=== PATIENT | female | born 1995 | race Hispanic/Latino ===

== ENCOUNTER 2017-07-24 17:40 | Inpatient (IN) | payer MEDICAID ==
[2017-07-24 18:24] LABS: Bilirubin Negative (Negative); Blood, Urine Large (Negative); Clarity CLEAR (Clear); Glucose, Urine (Dipstick) Negative (Negative); Leukocyte Trace (Negative); Nitrite Negative (Negative); Protein, Urine (Dipstick) Negative (Neg-Trace); Specific Gravity, Urine 1.025 (1.002-1.036)
[2017-07-24 18:25] LABS: Pregnancy Test - Urine (BHCG) Negative (Negative); Pregu Control Background? CLEAR/WHITE (CLR/WHITE); Pregu Control Bar Appear? YES (CONTROL BAR); Specific Gravity 1.025 (1.002-1.036)
[2017-07-24 18:26] LABS: Bacteria/HPF Rare-Few HPF (None Seen); Hyaline Casts/LPF 0-3 HYALINE CAST LPF (0-3 Hyaline); Pathc Cast-AUWi Flag 0.13 (0-2.49); Squamous Epithelial 0-3 HPF (0-3)
[2017-07-24] MEDS ORDERED: Morphine 4 MG/ML Carpuject ONE (18:34)
[2017-07-24] MEDS ORDERED: Ondansetron HCl/PF 4 MG/2 ML Vial ONE (18:34)
[2017-07-24 18:36] LABS: Yeast-AUWi Flag 46.8 (0-25.0)
[2017-07-24 18:43] LABS: #Basophils 0.1 thou/uL (0.0-0.2); #Eosinphils 0.3 thou/uL (0.0-0.7); #Lymphocytes 1.8 thou/uL (1.20-3.40); #Monocytes 0.5 thou/uL (0.11-0.59); #Neutrophils 3.4 thou/uL (1.40-6.50); %Basophils 1.3 % (0.0-1.0); %Eosinophils 4.3 % (0.0-10.0); %Lymphocytes 29.6 % (21.0-51.0); %Monocytes 8.4 % (0.0-10.0); %Neutrophils 56.4 % (42.0-75.0); Hemoglobin 13.7 g/dL (12.0-16.0); Mean Corpuscular HGB CONC 32.8 g/dL (32.0-36.0); Mean Corpuscular Hemoglobin 31.5 pg (27.0-31.0); Mean Corpuscular Volume 95.9 fl (81.0-99.0); Mean Platelet Volume 6.8 fL (7.4-10.4); Platelet Count 351 thou/uL (130-400); RBC Distribution Width 11.4 % (11.5-14.5); Red Blood Cell (RBC) Count 4.37 mill/uL (4.20-5.40); White Blood Cell (WBC) Count 6.1 thou/uL (4.8-10.8)
[2017-07-24 18:50] LABS: BHCG - Serum Negative (NEGATIVE); Pregs Control Background? CLEAR/WHITE (CLR/WHITE); Pregs Control Bar Appear? YES (CONTROL BAR)
[2017-07-24 18:54] LABS: RBC/HPF 0-3 HPF (0-3); Yeast-All Forms None Seen HPF (None Seen)
[2017-07-24 19:06] LABS: ALT (SGPT) 1214 U/L (8-55); AST (SGOT) 696 U/L (5-34); Albumin 4.3 g/dL (3.5-5.0); Alkaline Phosphatase 231 U/L (40-150); Anion Gap 12 mmol/L (10-20); BUN (Urea Nitrogen) 12 mg/dL (7.0-18.7); Bilirubin, Total 1.3 mg/dL (0.2-1.2); Calc. Creatinine Clearance 0 mL/min (70-130); Calcium 10.5 mg/dL (7.8-10.44); Carbon Dioxide 27 mmol/L (22-29); Chloride 104 mmol/L (98-107); Estimated GFR-MDRD Greater than 90; Globulin 3.3 g/dL (2.4-3.5); Glucose 92 mg/dL (70-105); Lipase 33 U/L (8-78); Potassium 3.9 mmol/L (3.5-5.1); Protein, Total 7.6 g/dL (6.0-8.3); Sodium 139 mmol/L (136-145)
--- NOTE | 2017-07-24 19:09 | ULT ---
GALLBLADDER ULTRASOUND 07/24/17 CLINICAL HISTORY: Abdominal pain for four days. FINDINGS: There are foci of increased echogenicity within the gallbladder lumen. Gallbladder wall measures betw een 2 and 3 mm in size. No focal hepatic lesion. Common duct is dilated at 7 mm. There is no ascites. IMPRESSION: Evidence of cholelithiasis and biliary ductal dilatation. Recommend correlation with biliary laborato ry values to exclude an obstructive process. There is borderline size of the gallbladder wall. Recommend clinical correlation to exclude developin g cholecystitis, and if necessary surgical consultation may prove useful. POS: OFF
[2017-07-24] MEDS ORDERED: Meropenem 1 GM in Sterile Water 20 ML SLOW IVP SCH (20:00)
[2017-07-24] MEDS: D5 1/2 NS w/20 mEq KCL 1,000 ML IV SCH (20:48)
[2017-07-25 01:20] VITALS: BMI 19.8
[2017-07-25] MEDS ORDERED: Meropenem 1 GM in Sterile Water 20 ML SLOW IVP SCH (04:00)
[2017-07-25] MEDS: D5 1/2 NS w/20 mEq KCL 1,000 ML IV SCH (04:44)
[2017-07-25 08:01] VITALS: BP 89/46; TEMP 98
[2017-07-25] MEDS ORDERED: Ondansetron ORAL SOLN. 4 MG/5 ML UDCUP PO PRN ×2 (08:54)
[2017-07-25] MEDS ORDERED: Ondansetron ODT 4 MG TAB PO PRN (08:54)
[2017-07-25] MEDS ORDERED: Ketorolac Tromethamine 30 MG/ML VIAL IVP PRN (08:54)
[2017-07-25] MEDS ORDERED: Ondansetron HCl/PF 4 MG/2 ML Vial IVP PRN ×2 (08:54→13:45)
[2017-07-25] MEDS ORDERED: Ondansetron ODT 8 MG TAB PO PRN (08:54)
[2017-07-25] MEDS ORDERED: Acetaminophen 1,000 MG in Premix Bag 1 BAG IVPB PRN (08:54)
[2017-07-25] MEDS ORDERED: Ondansetron ODT 8 MG TAB SL PRN (08:54)
[2017-07-25] MEDS ORDERED: Sodium Chloride 0.9% 1,000 ML IV SCH (09:00)
--- NOTE | 2017-07-25 09:53 | HP ---
DATE OF EVALUATION: 07/25/2017 HISTORY OF PRESENT ILLNESS: Imelda Saenz is a 21-year-old female patient who presents with ep igastric pain with back radiation, nausea, vomiting, acute onset four days, seen in the emergency jose francisco m. Liver function test elevated, bile duct of 7 mm. Gallbladder, full of stones. ALLERGIES: None. TOBACCO: None. ALCOHOL: Rarely. MEDICATIONS: None. PAST SURGICAL HISTORY: Noncontributory. PAST MEDICAL HISTORY: Noncontributory. REVIEW OF SYSTEMS: Noncontributory. PHYSICAL EXAMINATION: VITAL SIGNS: Height 5 foot 2, weight 108 pounds, 19 BMI, 98 degrees, 79, 89/46. HEENT: Unremarkable. LUNGS: Clear to auscultation. CARDIAC: Regular rate and rhythm without murmur or gallop. ABDOMEN: Soft, mild tenderness in epigastric, right upper quadrant with guarding. EXTREMITIES: Unremarkable. ASSESSMENT AND PLAN: Acute cholecystitis. Recommend laparoscopic video cholecystectomy. Risk of in fection, bleeding, visceral and biliary injury explained. We will obtain cholangiogram. She may nee d an ERCP. This was explained to her. Today, Gastroenterology on-call is Dr. Martinez, we will homer l him in case he is needed. Note, she is a 1, para 1, [id number] son.
[2017-07-25] MEDS ORDERED: Scopolamine 1.5 mg/72 hour Patch TD SCH (10:00)
[2017-07-25] MEDS ORDERED: Propofol 200 MG/20 ML VIAL ONE (11:07)
[2017-07-25] MEDS ORDERED: Dexamethasone 20 MG/5 ML VIAL ONE ×2 (11:07)
[2017-07-25] MEDS ORDERED: Lidocaine 1% PF 5 ML VIAL ONE (11:07)
[2017-07-25] MEDS ORDERED: PHENYLEPHRINE-NS 100 MCG/ML 10 ML SYRINGE ONE (11:07)
[2017-07-25] MEDS ORDERED: Ondansetron HCl/PF 4 MG/2 ML Vial ONE (11:07)
[2017-07-25] MEDS ORDERED: Ketorolac Tromethamine 30 MG/ML VIAL ONE (11:43)
[2017-07-25] MEDS ORDERED: Midazolam HCl 2 mg/2 ml Vial ONE ×2 (12:06→12:13)
[2017-07-25] MEDS ORDERED: Iothalamate Meglumine 60% 50 ML VIAL FS ONE (12:12)
[2017-07-25] MEDS ORDERED: Bupivacaine/Epinephrine 0.25% 30 ML VIAL ONE (12:12)
[2017-07-25] MEDS ORDERED: Fentanyl 100 MCG/2 ML VIAL ONE ×2 (12:13→14:03)
[2017-07-25] MEDS ORDERED: Promethazine HCl 25 MG/ML VIAL ONE (12:14)
[2017-07-25] MEDS ORDERED: SUGAMMADEX SODIUM 200 MG/2 ML VIAL ONE (13:29)
[2017-07-25] MEDS ORDERED: Morphine Sulfate 2 MG/ML SYRINGE SLOW IVP PRN (13:45)
[2017-07-25] MEDS ORDERED: Promethazine HCl 25 MG/ML VIAL SLOW IVP PRN (13:45)
[2017-07-25] MEDS ORDERED: Meperidine HCl/PF 25 MG/ML VIAL SLOW IVP PRN (13:45)
--- NOTE | 2017-07-25 13:57 | RAD ---
OPERATIVE CHOLANGIOGRAM: Indication: Intraoperative imaging to assess the common bile duct during cholecystomy procedure. FINDINGS: Single image is presented. The common duct is opacified and appears unremarkable. No filling defect o r stricture identified. POS: [facility]
[2017-07-25] MEDS ORDERED: traMADol HCl 50 MG TAB PO PRN ×2 (14:14)
--- NOTE | 2017-07-25 15:06 | OP ---
DATE OF PROCEDURE: 07/25/2017 PREOPERATIVE DIAGNOSES: Acute cholecystitis, cholelithiasis, elevated liver function tests, common b ile duct 7 mm. POSTOPERATIVE DIAGNOSES: Acute cholecystitis, cholelithiasis, elevated liver function tests, common bile duct 7 mm. PROCEDURES: Laparoscopic video cholecystectomy. Normal intraoperative cholangiogram. Fluoroscopy u sed less than 5 minutes. SURGEON: Narendra Lam M.D. ANESTHESIA: General. ESTIMATED BLOOD LOSS: 22 mL. PROCEDURE IN DETAIL: The patient was taken to the operating room where under general anesthesia, abd omen was prepared with ChloraPrep, draped in routine fashion, 0.25% Marcaine with epinephrine infiltr ated into skin and subcutaneous tissue about each port site. Infraumbilical incision made. Pneumope ritoneum to 15 mmHg was obtained with the Veress needle, replacing it with a 5 port, and laparoscope inserted. Right subxiphoid incision made and 11 port placed. Right subcostal incision made mid clav icular anterior axillary lines and 5 ports placed. Liver appeared to be normal. Fundus of gallbladd er grasped and reflected cephalad. Infundibulum grasped and reflected laterally. Cystic artery and duct dissected free. Critical view obtained. Cystic artery double clipped proximally. Cystic duct singly clipped on the gallbladder side. Opening made in the cystic duct, cholangiocath inserted, and cholangiogram was obtained using fluoroscopy with contrast filling the common hepatic, common bile, left and right hepatic ducts without filling defects with free flow of contrast into the duodenum. C holangiocatheter removed. Cystic duct stump doubly clipped. Cystic artery and duct divided. The ga llbladder dissected free from the liver bed obtaining good hemostasis prior to division of final bernard toneal attachments. Gallbladder and contents placed in Endobag and removed. Good hemostasis ensured with cautery. Irrigant and pneumoperitoneum evacuated. All instruments were removed and all skin i ncisions approximated with interrupted subdermal 4-0 Monocryl and DermaGlue applied.
--- NOTE | 2017-07-26 01:21 | DIS ---
DISCHARGE DIAGNOSES: Acute cholecystitis, cholelithiasis, elevated liver function tests with bilirub in 1.5, bile ducts 7 mm. PROCEDURES: Ultrasound of the gallbladder, laparoscopic video cholecystectomy, normal cholangiogram. SURGEON: Dr. Lam. HISTORY: A 21-year-old 1, para 1, 1-year-old son presents with 4-day history of epigastric p ain, back radiation, nausea and vomiting. Emergency room evaluation revealed elevated liver function test, bilirubin 1.5, bile duct 7 mm on ultrasound. The patient was taken for laparoscopic cholecyst ectomy and cholangiogram, which were normal. Postoperatively discharged home. Follow up in my offic e in 2-3 weeks. Diet and activity as tolerated. No restrictions. [id number] Tylenol, Motrin and Advil for pain, Ultram 50 #20, one refill given in case needed.
[2017-07-26] MEDS ORDERED: Acetaminophen 500 MG TAB PO PRN (14:14)
[2017-07-30] MEDS ORDERED: Ibuprofen 600 MG TAB PO PRN (14:14)
== END 2017-07-25 20:16 | disposition home or self-care (01) | DRG 419 ==
LOC: ERS 17:40 → SJJU 20:23
PROVIDERS: ADMIT Specialist; ATTEND Specialist
PROC: 0FT44ZZ Resection of Gallbladder, Percutaneous Endoscopic Approach (ICD-10-PCS; principal; 2017-07-25)
PROC: BF130ZZ Fluoroscopy of Gallbladder and Bile Ducts using High Osmolar Contrast (ICD-10-PCS; 2017-07-25)
DX: K80.00 Calculus of gallbladder with acute cholecystitis without obstruction (principal)
CPT/HCPCS: 36415; 47532; 76705; 80053; 81003; 81015; 81025; 83690; 84703; 85025; 88304; 96361; 96374; A4216; J0131; J1610; J1885; J1956; J2185; J2250; J2270; J2405; J2550; J3010; Q9961

== ENCOUNTER 2018-08-29 07:20 | Outpatient (CLI) | payer OTHER ==
--- NOTE | 2018-08-29 09:02 | ULT ---
OB ULTRASOUND DOPPLER COLOR FLOW WITH SPECTRAL WAVEFORM ANALYSIS PERFORMED: INDICATION: Evaluation of anatomy, 22-year-old patient. FINDINGS: There is evidence of an intrauterine gestation which by sonographic imaging corresponds to an 8-week 6-day gestation which places estimated date of delivery by ultrasound at 04/04/2019. Abutting the inf erior aspect of the gestational sac, there is a focus of altered echotexture indicating mild subchori onic hemorrhage. This measures approximately 2 cm. Doppler evaluation is performed which reveals fl ow to each ovary. No significant free pelvic fluid. IMPRESSION: Early live intrauterine gestation. cardiac activity is documented at 161 b.p.m. There is a sm all subchorionic hemorrhage. Recommend close continued followup. CODE T POS: [facility]
== END 2018-08-29 07:21 | disposition home or self-care (01) ==
LOC: BICULT 07:20
PROVIDERS: ATTEND Nurse Practitioner
DX: O09.91 Supervision of high risk pregnancy, unspecified, first trimester (principal); O20.8 Other hemorrhage in early pregnancy; Z3A.08 8 weeks gestation of pregnancy
CPT/HCPCS: 76856; 93976

== ENCOUNTER 2018-09-22 06:04 | Day surgery (SDC) | payer OTHER ==
[2018-09-19 13:37] VITALS: BMI 22.4
[2018-09-22] MEDS ORDERED: Fentanyl 100 MCG/2 ML VIAL ONE (06:32)
[2018-09-22] MEDS ORDERED: Lidocaine 1% (PF) 30 ML VIAL ONE (06:50)
[2018-09-22] MEDS ORDERED: PHENYLEPHRINE-NS 100 MCG/ML 10 ML SYRINGE ONE (10:26)
--- NOTE | 2018-09-22 11:01 | OP ---
DATE OF PROCEDURE: 09/22/2018 PREOPERATIVE DIAGNOSES: 1. A 23-year-old female, G2, P0-1-0-1, with a history of delivery at 26 weeks with premature rupture of membranes, here for a history indicated cervical cerclage. 2. Recent history of Chlamydia treated and test of cure was negative. 3. A 12 weeks plus . 4. Blood type A positive. POSTOPERATIVE DIAGNOSES: 1. A 23-year-old female, G2, P0-1-0-1, with a history of delivery at 26 weeks with premature rupture of membranes, here for a history indicated cervical cerclage. 2. Recent history of Chlamydia treated and test of cure was negative. 3. A 12 weeks plus . 4. Blood type A positive. PROCEDURE PERFORMED: Jhaveri cerclage. VERIFICATION ENGINEER: None. ANESTHESIA: Spinal. CLINICAL HISTORY: This patient is a 23-year-old, G2, P0-1-0-1, who was seen at the [facility] for her current . The established due date was April 04, 2019, by ultrasonography. The patient was counseled about her history of cervical insufficiency and noted her candidacy for cerclage at 12 plus weeks. She had a history of a delivery at 26 weeks with PPROM at 24 weeks. The patient was re-evaluated at that time for a test of cure for Chlamydia, as her first visit she was noted to be positive. She was otherwise having an uneventful and had normal laboratory studies except for already mentioned and her hemoglobin was 12.8 on her labs done on 08/20/2018, with a platelet count of 401. The patient was counseled about the procedure and the risks, benefits, and possible complications as well as alternatives to the procedure were discussed in detail. The patient wished to proceed. DESCRIPTION OF PROCEDURE: The patient was taken to the operating room, where spinal anesthesia was obtained. She was laid in the supine position with her legs in the Yellofin stirrups and she was prepped and draped in the usual sterile fashion. After placing a Wynn catheter and using the Wynn bulb for identification of the urethral cervical juncture, the ring forceps were used x2 to grasp the superior and posterior lip of the cervix and a circumferential suture was placed, was high up on the cervix as possible in a pursestring manner starting at 1 o'clock and going around the entirety of the cervix. The [place]il[place] tape was then pulled securely down and cinched with a square knot. Then, a tag loop was secured for ease of retraction when the patient is term later in the . The patient tolerated the procedure well and all needle, sponge, lap, and instrument counts were correct x2 at the end of the procedure, and the patient was hemostatic. There were no other issues surrounding this surgery. The patient was de-draped and cleansed and sent to recovery in satisfactory condition. There were no other issues surrounding this surgery. Job ID: [id number]
[2018-09-22] MEDS ORDERED: Acetaminophen 500 MG TAB ONE (11:39)
== END 2018-09-22 13:45 | disposition home or self-care (01) ==
LOC: SDC 06:04
PROVIDERS: ATTEND Obstetrics & Gynecology
PROC: 0UVC7ZZ Restriction of Cervix, Via Natural or Artificial Opening (ICD-10-PCS; principal; 2018-09-22)
DX: O34.31 Maternal care for cervical incompetence, first trimester (principal); Z3A.12 12 weeks gestation of pregnancy
CPT/HCPCS: 76815; J2001; J3010

== ENCOUNTER 2018-11-11 20:08 | Emergency (ER) | payer OTHER ==
[2018-11-11 21:08] LABS: Bilirubin Negative (Negative); Blood, Urine Large (Negative); Clarity CLOUDY (Clear); Glucose, Urine (Dipstick) 100 mg/dL (Negative); Leukocyte Trace (Negative); Nitrite Negative (Negative); Protein, Urine (Dipstick) Negative (Neg-Trace); Specific Gravity, Urine 1.018 (1.002-1.036)
[2018-11-11 21:09] LABS: Bacteria/HPF Rare-Few HPF (None Seen); Hyaline Casts/LPF 0-3 HYALINE CAST LPF (0-3 Hyaline); RBC/HPF GREATER THAN 50-TNTC HPF (0-3); Squamous Epithelial 0-3 HPF (0-3)
[2018-11-11] MEDS ORDERED: cefTRIAXone\\ROCEPHIN 1 GM VIAL ONE (21:51)
[2018-11-11] MEDS ORDERED: Lidocaine 1% PF 5 ML VIAL ONE (21:52)
--- NOTE | 2018-11-11 22:31 | ULT ---
US Renal Bilateral STANDARD History: [Hydronephrosis] Comparison: None Findings: Physiologic mild dilatation right renal collecting system due to underlying . Righ t kidney measures 10 x 4.3 x 4.4 cm and left kidney measures 9.7 x 5.6 x 4.6 similar. Prevoid urinary bladder volume is 99 mL. Positive heart tones of 157 bpm. Impression: Physiologic mild right hydronephrosis of .
[2018-11-11 22:39] LABS: #Eosinphils 0.1 thou/uL (0.0-0.7); #Monocytes 0.8 thou/uL (0.11-0.59); #Neutrophils 7.7 thou/uL (1.40-6.50); %Basophils 0.4 % (0.0-1.0); %Eosinophils 1.2 % (0.0-10.0); %Lymphocytes 18.9 % (21.0-51.0); %Monocytes 7.8 % (0.0-10.0); %Neutrophils 71.7 % (42.0-75.0); Hemoglobin 10.7 g/dL (12.0-16.0); Mean Corpuscular Hemoglobin 32.3 pg (27.0-31.0); Mean Platelet Volume 7.4 fL (7.4-10.4); Platelet Count 351 thou/uL (130-400); Red Blood Cell (RBC) Count 3.32 mill/uL (4.20-5.40); White Blood Cell (WBC) Count 10.7 thou/uL (4.8-10.8)
[2018-11-11 23:00] LABS: ALT (SGPT) 14 U/L (8-55); AST (SGOT) 13 U/L (5-34); Albumin 3.4 g/dL (3.5-5.0); Alkaline Phosphatase 61 U/L (40-150); Anion Gap 11 mmol/L (10-20); BUN (Urea Nitrogen) 11 mg/dL (7.0-18.7); Bilirubin, Total 0.2 mg/dL (0.2-1.2); Calc. Creatinine Clearance 0 mL/min (70-130); Calcium 9.2 mg/dL (7.8-10.44); Carbon Dioxide 23 mmol/L (22-29); Chloride 109 mmol/L (98-107); Estimated GFR-MDRD Greater than 90; Globulin 3.1 g/dL (2.4-3.5); Glucose 86 mg/dL (70-105); Potassium 3.6 mmol/L (3.5-5.1); Protein, Total 6.5 g/dL (6.0-8.3); Sodium 139 mmol/L (136-145)
[2018-11-15 00:08] LABS: Chlamydia by PCR Not Detected (NotDetected); GC by PCR Not Detected (NotDetected)
== END 2018-11-11 23:35 | disposition home or self-care (01) ==
LOC: ERS 20:08
DX: O23.42 Unspecified infection of urinary tract in pregnancy, second trimester (principal); Z3A.19 19 weeks gestation of pregnancy
CPT/HCPCS: 36415; 76770; 80053; 81003; 81015; 85025; 86900; 86901; 87086; 87480; 87491; 87510; 87591; 87660; 96372; J0696; J2001

== ENCOUNTER 2018-11-17 12:37 | Outpatient (CLI) | payer OTHER ==
--- NOTE | 2018-11-17 13:39 | ULT ---
OBSTETRICAL SONOGRAM: HISTORY: Second trimester gestation. evaluation. FINDINGS: Single intrauterine gestation, in cephalic presentation. The cervix is closed and 4.7 cm. Grade 0 p lacenta is posterior. Amniotic fluid is within normal limits. Four chamber heart shows motion at 14 9 beats per minute. spine and kidneys are intact as visualized. No gross intracranial abnorma lities are apparent. Three vessel cord shows a normal insertion. Measurements are as follows: Biparietal diameter: 21 weeks 4 days. Head circumference: 20 weeks 6 days. Abdominal circumference: 21 weeks 1 day. Femur length: 20 weeks 3 days. Estimated date of delivery based on today's sonogram: 03/30/2019 Hadlock: 73rd percentile. IMPRESSION: 1. Single viable intrauterine gestation. 2. Estimated gestational age, based on today's sonogram, 21 weeks 0 days. POS: [facility]
== END 2018-11-17 12:38 | disposition home or self-care (01) ==
LOC: BICULT 12:37
PROVIDERS: ATTEND Obstetrics & Gynecology
DX: O09.92 Supervision of high risk pregnancy, unspecified, second trimester (principal); Z3A.21 21 weeks gestation of pregnancy
CPT/HCPCS: 76805

== ENCOUNTER 2019-01-23 13:25 | Outpatient (CLI) | payer OTHER ==
--- NOTE | 2019-01-23 14:15 | ULT ---
LIMITED OBSTETRICAL ULTRASOUND: INDICATIONS: Evaluate growth. FINDINGS: There is a single live intrauterine gestation in a cephalic presentation. The placenta is anterior a nd frontal in location. There is a small placental adam seen within the anterior aspect of the place nta, measuring 1.8 cm. The cervical length is 3.6 cm. The DAISHA measures 13.09 cm. Cardiac activity is noted at 124 beats per minute. Gestational age based on biometrics is 33 weeks 6 days with an estimated due date of 03/07/2019 . Biparietal diameter measured 8.8 cm, giving an estimated gestational age of 35 weeks 4 days. Head circumference is 31.19 cm, giving an estimated gestational age of 35 weeks 0 days. Abdominal circumference is 28.81 cm, giving an estimated gestational age of 32 weeks 6 days. Femoral neck is 6.06 cm, giving an estimated gestational age of 31 weeks 4 days. Estimated weight is 2070 g, plus or minus 302 g (98th percentile). IMPRESSION: 1. Single live intrauterine gestation. 2. Estimated weight is in the 98th percentile, based on Hadlock. The Hadlock percentile was i n the 73rd percentile on the comparison, dated 11/17/2018. 3. The average gestational age by ultrasound is 33 weeks 6 days, with an estimated due date of 03/07. POS: [facility]
== END 2019-01-23 13:26 | disposition home or self-care (01) ==
LOC: BICULT 13:25
PROVIDERS: ATTEND Obstetrics & Gynecology
DX: Z34.93 Encounter for supervision of normal pregnancy, unspecified, third trimester (principal); Z3A.33 33 weeks gestation of pregnancy
CPT/HCPCS: 76815

== ENCOUNTER 2019-03-16 05:25 | Inpatient (IN) | payer OTHER ==
[~2019-03-16 05:25] MED LIST: NS / Oxytocin 40 units/1000ml 1,000 ML IV PRN; Ondansetron PF 4 MG/2 ML Vial IVP PRN
[2019-03-16] MEDS ORDERED: Zolpidem Tartrate 5 MG TAB PO PRN (06:00)
[2019-03-16] MEDS ORDERED: hydrALAZINE 20 MG/ML VIAL SLOW IVP PRN (06:00)
[2019-03-16] MEDS ORDERED: Lidocaine 1% (PF) 30 ML VIAL SC PRN (06:00)
[2019-03-16] MEDS ORDERED: HYDROcodone/Acetaminophen 5/325 mg Tablet PO PRN ×2 (06:00)
[2019-03-16] MEDS ORDERED: Ibuprofen 800 MG TAB PO PRN (06:00)
[2019-03-16] MEDS ORDERED: Promethazine HCl 25 MG/ML VIAL IM PRN ×2 (06:00→08:56)
[2019-03-16 06:21] VITALS: BMI 26.0
[2019-03-16 06:26] LABS: Hemoglobin 11.6 g/dL (12.0-16.0); Mean Corpuscular HGB CONC 33.4 g/dL (32.0-36.0); Mean Corpuscular Hemoglobin 28.8 pg (27.0-31.0); Mean Corpuscular Volume 86.5 fL (78.0-98.0); Mean Platelet Volume 8.2 fL (7.4-10.4); Platelet Count 322 thou/uL (130-400); RBC Distribution Width 17.1 % (11.5-14.5); Red Blood Cell (RBC) Count 4.01 mill/uL (4.20-5.40); White Blood Cell (WBC) Count 8.4 thou/uL (4.8-10.8)
[2019-03-16] MEDS: Lactated Ringer's 1,000 ML IV SCH ×2 (06:26→09:13)
[2019-03-16] MEDS ORDERED: Fentanyl 4 mcg/Bup 0.1% Cadd 100 ML ONE ×2 (06:58→17:11)
[2019-03-16] MEDS ORDERED: Lidocaine 1.5%/Epinephrine 1:200,000 5 ML AMPUL IJ ONE (06:59)
[2019-03-16 07:07] LABS: HBSAg Index 0.16 S/CO (0-0.99); Hep B Surf Ag Non-Reactive S/CO (NonReactive); Syphilis Antibody Nonreactive (Nonreactive); Syphilis Antibody Index 0.05 S/CO (<1.00 Non-Reactive)
[2019-03-16] MEDS ORDERED: Naloxone HCl 0.4 mg/ml Vial IVP PRN ×2 (08:56)
[2019-03-16] MEDS ORDERED: diphenhydrAMINE 50 MG/ML VIAL IVP PRN (08:56)
[2019-03-16] MEDS ORDERED: Acetaminophen 325 MG TAB PO PRN (08:56)
[2019-03-16] MEDS ORDERED: Lactated Ringer's 500 ML IV PRN (08:56)
[2019-03-16] MEDS ORDERED: Ondansetron PF 4 MG/2 ML Vial IVP PRN (08:56)
[2019-03-16] MEDS ORDERED: ePHEDrine/0.9% NaCl/PF SYRINGE 50 mg/10 ml SLOW IVP PRN (08:56)
[2019-03-16] MEDS ORDERED: Communication Order-Pharmacy FS SCH (09:00)
[2019-03-16] MEDS ORDERED: Fentanyl 4 mcg/Bupivacaine 0.1% Cassette 100 ML EPIDURAL SCH (09:00)
[2019-03-16] MEDS ORDERED: NS w/ Oxytocin 10 units 500 ML ONE (15:19)
[2019-03-16] MEDS: NS w/ Oxytocin 10 units 500 ML IV SCH (19:52)
[2019-03-17] MEDS ORDERED: Fentanyl 4 mcg/Bup 0.1% Cadd 100 ML ONE (00:19)
[2019-03-17] MEDS: Lactated Ringer's 1,000 ML IV SCH ×4 (02:44→23:59)
[2019-03-17] MEDS ORDERED: hydrALAZINE 20 MG/ML VIAL SLOW IVP PRN (05:22)
[2019-03-17] MEDS ORDERED: HYDROcodone/Acetaminophen 5/325 mg Tablet PO PRN ×3 (05:22→09:03)
[2019-03-17] MEDS ORDERED: Bisacodyl 10 MG SUPP PR PRN (05:22)
[2019-03-17] MEDS ORDERED: Milk Of Magnesia 30 ML UDCUP PO PRN (05:22)
[2019-03-17] MEDS ORDERED: Preparation H Ointment 28 GM TUBE PR PRN (05:22)
[2019-03-17] MEDS ORDERED: Lanolin Ointment 7 GM TUBE TOP PRN (05:22)
[2019-03-17] MEDS ORDERED: NS / Oxytocin 40 units/1000ml 1,000 ML IV SCH (05:30)
--- NOTE | 2019-03-17 07:04 | DN ---
DATE OF PROCEDURE: 03/17/2019 PREOPERATIVE DIAGNOSES: 1. A 23-year-old, G2, P0-1-0-1 at 37 weeks and 2 days with a cerclage removal on 03/16 for history of cervical insufficiency and history of delivery at 27 weeks gestation. 2. Spontaneous vaginal delivery. 3. Group B Streptococcus negative. POSTOPERATIVE DIAGNOSES: 1. A 23-year-old, G2, P0-1-0-1 at 37 weeks and 2 days with a cerclage removal on 03/16 for history of cervical insufficiency and history of delivery at 27 weeks gestation. 2. Spontaneous vaginal delivery. 3. Group B Streptococcus negative. 4. Live born male infant with Apgars of 9 and 9 at 1 and 5 minutes respectively. ESTIMATED BLOOD LOSS: 300 mL. PROCEDURES PERFORMED: 1. Cerclage removal. 2. Spontaneous vaginal delivery. 3. Second-degree repair with excellent hemostasis. ANESTHESIA: Epidural. CLINICAL HISTORY: This patient is a 23-year-old G2, P0-1-0-1, who presented at 37 weeks and 1 day for a scheduled cerclage removal. She was admitted and after starting an IV and getting labs, she had a category 1 tracing and epidural placed for maternal analgesia. Cerclage removal was performed without any difficulty and the patient was immediately noted to be 4 cm, 70% effaced, and -2 station. She progressed to 5 cm, 70% effaced, and -2 station by lunch time, and the decision was made to perform an amniotomy for clear fluid and continued to allow the patient to labor. The patient after rechecking 2 hours later, was not any different, and Pitocin was started. The patient did progress to 6 cm; however, did not continue to progress in dilation and an IUPC was placed. At that time, the Pitocin was titrated to adequate contractions and the patient continued to progress. When she made complete cervical dilation, she was allowed to labor down and she went to +1 station, but there was significant caput and molding. The patient was then coached on how to push and with multiple techniques employed, she was able to bring the vertex to the position. DETAILS OF PROCEDURE: With good maternal effort, the patient was able to push the vertex out in the CRISSY position. The anterior shoulder followed by the posterior shoulder followed by the remainder of the 's body was delivered. The infant cried spontaneously and was attempted bulb suction without any yield. The cord was doubly clamped and cut and placed on the abdomen for continued stimulation. Cord blood was obtained. The placenta was delivered spontaneously intact with a 3-vessel cord and exploration of vagina, introitus and cervix noted a midline second-degree laceration that was pretty shallow. This was repaired in a running locking fashion, then the crown sutures were placed to reapproximate the soft tissue and then the skin was reapproximated and the knot was buried beyond the hymen and the vagina. The patient tolerated the procedure well and was able to recover on Labor and Delivery in satisfactory condition. She did receive local anesthetic for the repair to supplement her epidural. There were no other issues surrounding this delivery. All needle, sponge, lap, and instrument counts were correct x2 at the end of the procedure and the patient was able to recover in Labor and Delivery with her . Again, the infant was a live born male with Apgars of 9 and 9 at 1 and 5 minutes respectively. Job ID: [id number]
[2019-03-17] MEDS ORDERED: Adacel (T-DAP) 0.5 ML SYRINGE IM ONE (09:00)
[2019-03-17] MEDS: NS w/ Oxytocin 10 units 500 ML IV SCH (09:20)
[2019-03-17] MEDS: Ferrous Sulfate 325 MG TAB PO SCH ×2 (09:23→15:47)
[2019-03-17] MEDS: Prenatal Vitamin 1 TAB PO SCH (09:29)
[2019-03-17] MEDS: Ibuprofen 800 MG TAB PO SCH ×3 (09:29→21:37)
[2019-03-17] MEDS: Docusate Calcium (SURFAK) 240 MG CAP PO SCH ×2 (09:29→21:37)
[2019-03-17] MEDS ORDERED: Bupivacaine/Epinephrine 0.25% 30 ML VIAL ONE (15:25)
[2019-03-17] MEDS ORDERED: ePHEDrine/0.9% NaCl/PF SYRINGE 50 mg/10 ml ONE (15:25)
[2019-03-17] MEDS ORDERED: Bupivacaine 0.25% HCL 30 ML VIAL ONE (15:25)
[2019-03-17] MEDS: HYDROcodone/Acetaminophen 5/325 mg Tablet PO PRN (20:41)
[2019-03-18] MEDS: HYDROcodone/Acetaminophen 5/325 mg Tablet PO PRN ×2 (04:36→09:32)
[2019-03-18] MEDS: Ibuprofen 800 MG TAB PO SCH ×2 (05:26→14:48)
[2019-03-18] MEDS: NS w/ Oxytocin 10 units 500 ML IV SCH (07:30)
[2019-03-18] MEDS: Lactated Ringer's 1,000 ML IV SCH ×2 (07:30→14:48)
[2019-03-18] MEDS: Ferrous Sulfate 325 MG TAB PO SCH ×2 (07:31→15:04)
[2019-03-18 08:18] VITALS: BP 116/71; TEMP 98.1
[2019-03-18] MEDS: Prenatal Vitamin 1 TAB PO SCH (09:30)
[2019-03-18] MEDS: Docusate Calcium (SURFAK) 240 MG CAP PO SCH (09:30)
== END 2019-03-18 20:15 | disposition home or self-care (01) | DRG 768 ==
LOC: L&D 05:25 → 3SW 03-17 08:22
PROVIDERS: ADMIT Obstetrics & Gynecology; ATTEND Obstetrics & Gynecology
PROC: 10E0XZZ Delivery of Products of Conception, External Approach (ICD-10-PCS; principal; 2019-03-17)
PROC: 0UCC7ZZ Extirpation of Matter from Cervix, Via Natural or Artificial Opening (ICD-10-PCS; 2019-03-17)
PROC: 0KQM0ZZ Repair Perineum Muscle, Open Approach (ICD-10-PCS; 2019-03-17)
PROC: 10907ZC Drainage of Amniotic Fluid, Therapeutic from Products of Conception, Via Natural or Artificial Opening (ICD-10-PCS; 2019-03-17)
PROC: 3E033VJ Introduction of Other Hormone into Peripheral Vein, Percutaneous Approach (ICD-10-PCS; 2019-03-17)
DX: O34.33 Maternal care for cervical incompetence, third trimester (principal); Z37.0 Single live birth; O70.1 Second degree perineal laceration during delivery; Z3A.37 37 weeks gestation of pregnancy
CPT/HCPCS: 36415; 51702; 85027; 86780; 86850; 86900; 86901; 87340; J2001; J2590; J3490; S0020

== ENCOUNTER 2021-03-05 11:36 | Emergency (ER) | payer OTHER | END 2021-03-05 13:34 | disposition home or self-care (01) | LOC: ERS 11:36 | DX: S29.012A Strain of muscle and tendon of back wall of thorax, initial encounter (principal); U07.1 COVID-19; J12.82 Pneumonia due to coronavirus disease 2019; R00.0 Tachycardia, unspecified; X58.XXXA Exposure to other specified factors, initial encounter | CPT/HCPCS: 36415; 71045; 84484; 93005 ==